=== PATIENT | male | born 1985 | race Caucasian/White ===

== ENCOUNTER 2017-01-22 10:11 | Emergency (ER) | payer BC ==
[~2017-01-22] VITALS: Ht 177.8 cm; Wt 96.2 kg
[2017-01-22 10:13] VITALS: TEMP 37.4; Ht 177.8 cm; Wt 96.2 kg
[2017-01-22] MEDS ORDERED: CYAN100T PO (11:17)
[2017-01-22] MEDS ORDERED: LISI20TA3 PO (11:17)
--- NOTE | 2017-01-22 12:16 | DIAGNOSTIC IMAGING REPORT ---
L VENOUS DOPP LOWER EXT UNILAT HISTORY: 31 years-old Male Left calf pain, bruising acute left calf pain and bruising COMPARISON: None available TECHNIQUE: Multiple real-time sonographic images of the left lower extremity deep venous system was obtained assessing grayscale appearance, color and spectral flow. FINDINGS: There is normal flow, augmentation, compressibility and phasicity within the left lower extremity deep venous system. IMPRESSION: No sonographic evidence of deep venous thrombosis. The above report was generated using voice recognition software. It may contain grammatical, syntax or spelling errors. Electronically signed by: Pj Sagastume M.D. 01/22/2017 12:15 PM Dictated Date/Time: 01/22/2017 12:14 PM
[2017-01-22 12:32] VITALS: BP 119/70; PULSE 59; O2SAT 97
--- NOTE | 2017-01-22 12:32 | EMERGENCY ROOM VISIT NOTE ---
History First contact with patient: 11:04 Chief Complaint: CALF PAIN Stated Complaint: TENDERNESS, BRUISING IN LEFT CALF, R/O DVT History of Present Illness The patient is a 31 year old male who presents to the Emergency Room via private vehicle with complaints of "tenderness, bruising and left calf, rule out DVT". The patient states that this past Sunday he was on his feet for about 15 hours, and has had bilateral calf tenderness, and now the right one has dissipated and now there is left calf tenderness and bruising. He is concerned about a DVT. He denies any fevers or chills. There is no chest pain or shortness of breath. Pain rated as 3/10. Review of Systems A complete 6-point Review of Systems was discussed with the patient, with pertinent positives and negatives listed in the History of Present Illness. All remaining Review of Systems questions can be considered negative unless otherwise specified. Past Medical/Surgical History Htn Family History Diabetes, heart disease, high blood pressure, cancer. Social History Smoking Status: Current Some Day Smoker Patient lives with . Current/Historical Medications Scheduled Cyanocobalamin (Vitamin B-12), 1 TAB PO 2XWK Lisinopril (Prinivil), 20 MG PO DAILY Physical Exam Vital Signs Date Time Temp Pulse Resp B/P (MAP) Pulse Ox O2 Delivery O2 Flow Rate FiO2 01/22/17 12:32 59 16 119/70 97 Room Air 01/22/17 10:13 37.4 64 18 149/86 100 Room Air Physical Exam VITAL SIGNS - Vital signs and nursing notes were reviewed. Stable. GENERAL -31-year-old male appearing his stated age who is in no acute distress. Communicates well with provider and answers questions appropriately. SKIN - there is a small bruise to the posterior aspect of the patient's left mid calf. No fluctuance. Minimal tenderness. EXTREMITIES - No clubbing or peripheral cyanosis. No pretibial edema present. Slight edema to the patient's left posterior calf. No evidence of compartment syndrome. Minimal tenderness. No evidence of fracture. +5/5 strength noted in UE/LE bilaterally. Medical Decision & Procedures ER Provider Diagnostic Interpretation: [~ rep ct add3]] L VENOUS DOPP LOWER EXT UNILAT HISTORY: 31 years-old Male Left calf pain, bruising acute left calf pain and bruising COMPARISON: None available TECHNIQUE: Multiple real-time sonographic images of the left lower extremity deep venous system was obtained assessing grayscale appearance, color and spectral flow. FINDINGS: There is normal flow, augmentation, compressibility and phasicity within the left lower extremity deep venous system. IMPRESSION: No sonographic evidence of deep venous thrombosis. The above report was generated using voice recognition software. It may contain grammatical, syntax or spelling errors. Electronically signed by: Pj Sagastume M.D. 01/22/2017 12:15 PM Dictated Date/Time: 01/22/2017 12:14 PM Medical Decision Patient was seen and evaluated as above. After obtaining a thorough history and physical examination ultrasound was obtained of the patient's left lower extremity. Results as above. No DVT. I suspect he is likely pulled a muscle, or has a slight tear. His pain is minimal. There is no evidence of compartment syndrome. He was offered crutches, but the decision was made to refrain from this at this time, and rather allow him to gently use this to not perform any strenuous activity. He is to follow-up with his family doctor regarding his injury today. He was educated upon management, educated upon worrisome symptoms which to return, had questions answered prior to discharge, and was discharged home in good condition. In evaluation treatment of this patient the following differential diagnoses were entertained: Strain, sprain, muscle rupture, tendon rupture, DVT, rhabdomyolysis, among others. Impression Primary Impression: Pain of left calf Departure Information Dispostion Home / Self-Care Condition GOOD Referrals Alfred Jones MD (PCP) Patient Instructions Compartment Syndrome, My [facility] Additional Instructions You have been treated in the Emergency Department for calf pain. For pain control, you can use the following [id number] medicines (if >12 yo): - Regular strength (325mg/tab) Tylenol (acetaminophen) 2 tabs every 4-6 hours as needed. Do not exceed 12 tablets in a 24 hour period. Avoid taking more than 3 grams (3000 mg) of Tylenol per day. This includes any other sources of acetaminophen you may take on a regular basis. - Regular strength (200 mg/tab) Advil (ibuprofen) 1-2 tabs every 4-6 hours as needed. Do not exceed a dose of 3200 mg per day. If this is a recent injury (<24 hrs), ice can be applied to the area of pain for the first 3 days to help decrease pain and inflammation. Ice massages can be performed by freezing water in a paper cup, peeling back the cup to expose the ice and then massaging over the affected area. Please follow-up with your family doctor regarding your visit to the emergency department today. If your pain would worsen, the swelling would increase, or if you have any chest pain or shortness of breath or any new/concerning symptoms please return immediately. Return to the Emergency Department if your current symptoms worsen despite treatment course outlined above.
== END 2017-01-22 12:37 | disposition home or self-care (01) ==
LOC: C.EDB 10:13 → C.EDD 12:37
DX: M79.662 Pain in left lower leg (principal); I10 Essential (primary) hypertension; Z83.3 Family history of diabetes mellitus; Z82.49 Family history of ischemic heart disease and other diseases of the circulatory system; Z80.9 Family history of malignant neoplasm, unspecified; F17.210 Nicotine dependence, cigarettes, uncomplicated; Z79.899 Other long term (current) drug therapy